=== PATIENT | female | born 2000 | race Caucasian/White ===

== ENCOUNTER → 2020-01-13 16:50 | Outpatient (BNVA) | payer MEDICAID, SELFPAY | PROVIDERS: Family Provider Family Medicine; PCP Nurse Practitioner Family; Visit Provider Obstetrics & Gynecology | DX: Z12.4 Encounter for screening for malignant neoplasm of cervix (principal) | CPT/HCPCS: 88175 ==

== ENCOUNTER → 2020-06-08 10:45 | Outpatient (BNVA) | payer MEDICAID, SELFPAY | PROVIDERS: Family Provider Family Medicine; PCP Nurse Practitioner Family; Visit Provider Obstetrics & Gynecology | DX: Z11.3 Encounter for screening for infections with a predominantly sexual mode of transmission (principal) | CPT/HCPCS: 87491; 87591 ==

== ENCOUNTER 2020-08-09 18:30 | Emergency (ER) | payer MEDICAID, SELFPAY ==
[2020-08-09 19:07] VITALS: BP 123/71; PULSE 86; RESP 17; TEMP 36.7; O2SAT 100; BMI 31.6
[2020-08-09 19:44] VITALS: BP 112/49; PULSE 75; RESP 23; O2SAT 100
--- NOTE | 2020-08-09 19:57 | CTR_ITS ---
PROCEDURE INFORMATION: Exam: CT Abdomen And Pelvis With Contrast Exam date and time: 08/09/2020 9:35 PM Age: 20 years old Clinical indication: Abdominal pain; Localized; Lower; Prior surgery; Surgery type: ; Additional info: Llq abdominal pain TECHNIQUE: Imaging protocol: Computed tomography of the abdomen and pelvis with contrast. Radiation optimization: All CT scans at this facility use at least one of these dose optimization techniques: automated exposure control; mA and/or kV adjustment per patient size (includes targeted exams where dose is matched to clinical indication); or iterative reconstruction. Contrast material: OMNI 300; Contrast volume: 95 ml; Contrast route: INTRAVENOUS (IV); COMPARISON: US transvaginal [id number] 08/09/2020 8:16 PM RADIATION DOSE METRICS: Total DLP (mGy-cm): 1583.99 FINDINGS: The lung bases are clear. There are bilateral pars defects at L5. There is no liver mass. There is no intrahepatic biliary dilatation. The gallbladder is contracted likely due to recent meal. The stomach is filled with food. The pancreas is unremarkable. The spleen is unremarkable. There is no adrenal mass. There is no hydronephrosis. There are no renal calculi. There is no perinephric stranding. There is no renal mass. The aorta is normal in caliber. The IVC is normal in caliber. There is no retroperitoneal adenopathy. There is no mesenteric adenopathy. There is no gastric wall thickening. The small bowel loops in the upper abdomen are nondistended with no bowel wall thickening. Feces is seen throughout the colon. There is no thickening of the wall of the ascending, transverse or descending colons. Within the pelvis: A normal appendix is seen within the right lower quadrant. The bladder is unremarkable. An IUD is seen within the uterus. There is a 4.2 cm right ovarian cyst. There is a 2.1 cm left ovarian cyst. There is no free fluid within the pelvis. There is no inguinal adenopathy. There is no pelvic adenopathy. The rectosigmoid colon is unremarkable. CT/CT abdomen pelvis w con* [id number] IMPRESSION: 1. Small simple ovarian cysts. 2. No evidence for bowel obstruction or bowel wall thickening. 3. No acute inflammatory process is seen within the abdomen or pelvis. Radiation Dose CTDIVOL = (mGy): DLP = 1583.99 (mGy-cm)
--- NOTE | 2020-08-09 19:57 | USR_ITS ---
PROCEDURE INFORMATION: Exam: US Pelvis, Transvaginal Exam date and time: 08/09/2020 8:09 PM Age: 20 years old Clinical indication: Pelvic pain; Prior surgery; Surgery date: 6+ months; Surgery type: 2 c-sec; Additional info: Llq pain TECHNIQUE: Imaging protocol: Real-time transvaginal pelvic ultrasound with image documentation. Transvaginal imaging was used for better evaluation of the endometrium, adnexa, and/or cervix. COMPARISON: US OB Limited [id number] 08/05/2018 8:30 PM FINDINGS: The transvaginal imaging of the pelvis was performed. The the the uterus measured 7.6 x 5.5 x 3.5 cm. There is no uterine mass. There is an IUD within the endometrial canal. The right ovary measured 4.2 x 4.2 x 3.0 cm. The left ovary measured 3.0 x 2.0 x 1.8 cm. There is a 3.6 cm simple appearing right ovarian cyst. No mass is seen within the left ovary. Normal blood flow is seen within the ovaries. No free fluid is identified. US/US transvaginal [id number] IMPRESSION: 3.6 cm simple appearing right ovarian cyst.
[2020-08-09 20:42] LABS: Add Urine Microscopic? NO; Charge for UA Resulting for Rev
[2020-08-09 20:47] LABS: Urine Appearance Clear (CLEAR); Urine Color Yellow (Yellow)
[2020-08-09 20:48] LABS: Bilirubin Urine Neg (Negative); Blood Urine Neg (Negative); Glucose Urine UA Norm (Normal); Ketones Urine Negative (Negative); Leukocyte Esterase Urine Negative (Negative); Nitrate Urine Negative (Negative); Protein Urine Neg (Negative); Specific Gravity, Urine 1.005 (1.005-1.030); Sulfosalicylic Acid Urine Negative (Negative); Urobilinogen Urine Norm (Negative); pH Urine 8 (5-7)
[2020-08-09] MEDS: sodium chloride 0.9% 1,000 ML 999 ML IV (20:52)
[2020-08-09] MEDS: iohexol 300 mg/mL 100 mL Btl IV (21:36)
[2020-08-09 21:57] LABS: Basophils % 0.4 %; Eosinophils # 0.1 10^3/uL (0.0-0.8); Eosinophils % 1.6 %; Hematocrit 36.5 % (37.0-47.0); Hemoglobin 11.8 g/dL (11.5-15.3); Lymphocytes # 2.6 10^3/uL (0.8-4.8); Lymphocytes % 28.7 %; Mean Corpuscular HGB Conc 32.3 g/dL (30.0-36.0); Mean Corpuscular Hemoglobin 30.1 pg (28.0-34.0); Mean Corpuscular Volume 93.1 fL (81-99); Mean Platelet Volume 11.2 fL (7.4-10.4); Monocytes # 0.8 10^3/uL (0.2-0.9); Neutrophils # 5.42 10^3/uL (1.8-7.7); Neutrophils % 60.1 %; Nucleated Red Blood Cells % 0 %; Platelet Count 222 10^3/cmm (130-400); Red Blood Count 3.92 10^6/uL (4.1-5.3); Red Cell Distribution Width 11.8 % (12.1-15.1)
--- NOTE | 2020-08-09 22:05 | W.ED.ABDPA2 ---
HPI - Abdominal Pain General: Chief Complaint: Abdominal Pain Stated Complaint: SEVERE CRAMPING L LOWER SIDE ABDOMEN Time Seen by Provider: 08/09/20 19:44 History of Present Illness: HPI narrative: The patient is a 20-year-old female who comes to the ER complaining of suprapubic pain just to the left of midline. She says it also hurt with sexual intercourse yesterday and the pain did start yesterday. She denies vaginal discharge. She uses an IUD for control. Denies urinary symptoms. She says her family has history of ovarian cysts. MD elicited complaint: abdominal pain Pertinent past history: none Pain Consistency: constant Location: LLQ Severity: mild Quality: sharp Migration to: no migration Exacerbating factors: other (Sexual intercourse) Relieving factors: nothing Associated Symptoms: Reports no associated symptoms; Denies GI cramping and diarrhea Review of Systems General: Reports: 10 or more systems reviewed and unremarkable except in HPI and below Const: Denies: fatigue Eyes: Denies: change in vision, blurry vision or eye redness ENMT: Denies: throat pain, swelling of lips/tongue, ear or mastoid pain or nasal congestion Card: Denies: chest pain, palpitations, irregular heart rhythm, edema, dyspnea on exertion or orthopnea Resp: Denies: dyspnea, productive cough or non-productive cough GI: Denies: abdominal pain, diarrhea or GI cramping : Denies: flank pain, difficulty voiding, urinary frequency or urinary urgency Musc: Denies: neck pain, back pain, extremity pain, joint pain, joint redness, limited range of motion or muscle weakness Skin/Breast: Denies: rash, pruritus, erythema, skin pain or skin tenderness Neuro: Denies: headache(s), numbness in extremities, weakness in extremities, sensory changes, difficulty walking, dizziness, confusion or Slurred speech present Psych: Denies: anxiety or depression Endo: Denies: polyuria All/Imm: Denies: urticaria, throat swelling or tongue swelling PFSH ED PFSH: Medical History No pertinent past medical history Denies diabetes, asthma, hypertension, seizures, DVT/PE PCP: MICHAEL Funez Surgical History S/P section x 2 03/08/2017--- delivery at 29 weeks for active labor at 7 cm. Baby boys brentlee and bently. - Operative reports were obtained and scanned into the chart. Primary delivery with a T-shaped uterine incision. Baby be could not be delivered and extension of the incision to a T-shaped was done. Recommend all future deliveries via . 11/27/2018-----> repeat low transverse delivery via Pfannenstiel incision at 36 weeks after steroids were given. Performed by Dr. Griffin at [facility] [place] because of T-shaped uterine incision S/P tonsillectomy 01/2016--performed in [place], [place] Family History Mother Diabetes Stroke Heart disease Grandmother Diabetes maternal and paternal Denies family history of Colon cancer Ovarian cancer Hyperlipidemia Breast cancer Hypertension Uterine cancer Thyroid condition Physical Exam Const: COMMON NORMALS: no acute distress, average body habitus, patient oriented x3, no limitations, healthy appearing, alert and well nourished GENERAL APPEARANCE: cooperative, comfortable, well kempt and well developed ORIENTATION/CONSCIOUSNESS: Yes awake, Yes oriented to person, Yes oriented to place and Yes oriented to time HENMT: COMMON NORMALS: normocephalic, external ears normal and Normal external nose present HEAD & SCALP: normal to inspection and normocephalic NOSE: Normal external nose present EXTERNAL EAR: Yes external ears normal MOUTH: Normal oral and palatal mucosa present THROAT: posterior oropharynx normal Eye: COMMON NORMALS: Equal, round and reactive pupils present and EOMs intact bilaterally GENERAL EYE: appearance normal, both eyes and all related structures PUPIL: Yes Equal, round and reactive pupils present Neck/C-Spine: COMMON NORMALS: full ROM, no lymphadenopathy, no meningeal signs and no JVD GENERAL: Yes normal visual inspection Lymph: LYMPHATIC: no lymphadenopathy noted Chest: COMMONS NORMALS: normal inspection of the chest and normal palpation of entire chest wall Resp: COMMON NORMALS: normal respiratory effort, No retractions, No use of accessory muscles, clear to auscultation bilaterally and percussion normal EFFORT & INSPECTION: Yes able to speak in complete sentences AUSCULTATION: clear to auscultation bilaterally PERCUSSION: percussion normal Cardio: COMMON NORMALS: no JVD, regular rate, regular rhythm, S1 normal heart sound present, S2 normal heart sound present and Peripheral pulses 2+ throughout RATE: regular rate RHYTHM: regular rhythm HEART SOUNDS: S1 normal heart sound present and S2 normal heart sound present PERIPHERAL PULSES: Peripheral pulses 2+ throughout GI: COMMON NORMALS: Normal to inspection, nondistended, normoactive bowel sounds present, Soft to palpation, non-tender and no masses INSPECTION: Yes normal to inspection PALPATION: Yes Soft to palpation OTHER: Mild tenderness over left lower quadrant area where the ovary is located. Likely ovarian cyst tenderness. : COMMON NORMALS: Yes no CVA tenderness BLADDER/KIDNEY EXAM: Yes no CVA tenderness Back/Pelvis: COMMON NORMALS: no CVA tenderness, thoracic and lumbar spine normal to inspection, no thoracic nor lumbar tenderness and thoraco-lumbar ROM normal Extremity: COMMON NORMALS: normal to inspection, full ROM, capillary refill normal, no joint enlargement and no pedal edema GENERAL: Yes normal exam except as noted Neuro: COMMON NORMALS: patient oriented x3, CN's II-XII intact bilaterally, moves all extremities, no focal motor deficits, no sensory deficits noted and gait normal SENSORIUM/ORIENTATION: Yes alert, Yes oriented to person, Yes oriented to place and Yes oriented to time MENINGEAL SIGNS: Yes no meningeal signs Psych: COMMON NORMALS: mental status grossly normal, Normal thought process present, cooperative, normal affect and speech normal APPEARANCE: Yes well kempt ATTITUDE: Yes calm SPEECH: Yes normal speech THOUGHT PROCESS: Normal thought process present Skin: COMMON NORMALS: no rashes or lesions noted GENERAL SKIN EXAM: no rashes or lesions noted Course Vital Signs: Vital signs: Vital Signs Temperature 98.0 F 08/09/20 19:07 Pulse Rate 88 08/09/20 22:19 Respiratory Rate 20 H 08/09/20 22:19 Blood Pressure 108/53 08/09/20 22:19 Pulse Oximetry 98 08/09/20 22:19 MDM - Abdominal Pain MDM Narrative: Medical decision making narrative: CT and ultrasound both show ovarian cyst. She is stable for discharge. Ibuprofen for pain. Primary care in a couple days. ER with worsening symptoms. Lab Data: Labs: Lab Results 08/09/20 08/09/20 08/09/20 Range/Units 20:37 21:50 21:50 WBC 9.0 (4.0-10.0) 10^3/ uL RBC 3.92 L (4.1-5.3) 10^6/u L Hgb 11.8 (11.5-15.3) g/dL Hct 36.5 L (37.0-47.0) % MCV 93.1 (81-99) fL MCH 30.1 (28.0-34.0) pg MCHC 32.3 (30.0-36.0) g/dL RDW 11.8 L (12.1-15.1) % Plt Count 222 (130-400) 10^3/c mm MPV 11.2 H (7.4-10.4) fL Neut % (Auto) 60.1 % Lymph % (Auto) 28.7 % [place] % (Auto) 9.0 % Eos % (Auto) 1.6 % Baso % (Auto) 0.4 % Neut # (Auto) 5.42 (1.8-7.7) 10^3/u L Lymph # (Auto) 2.6 (0.8-4.8) 10^3/u L [place] # (Auto) 0.8 (0.2-0.9) 10^3/u L Eos # (Auto) 0.1 (0.0-0.8) 10^3/u L Baso # (Auto) 0.0 (0.0-0.1) 10^3/u L Nucleated RBC % (a uto) 0 % Nucleated RBCs # 0.0 /100WBC Sodium 137 (136-145) mmol/L Potassium 3.8 (3.5-5.1) mmol/L Chloride 105 (98-107) mmol/L Carbon Dioxide 26 (22-29) mmol/L Anion Gap 9.8 (5-19) BUN 8 (6-20) mg/dL Creatinine 0.5 (0.5-0.9) mg/dL Glucose 89 (65-115) mg/dL Total Bilirubin 0.2 (0.15-1.2) mg/dL AST 11 (0-32) U/L ALT 8 (0-33) U/L Alkaline Phosphata se 72 (35-105) IU/L Albumin 4.0 (3.5-5.2) g/dL Globulin 2.1 (1.3-4.6) g/dL Lipase 29 (13-60) U/L Urine Color Yellow (Yellow) Urine Appearance Clear (CLEAR) Urine pH 8 H (5-7) Ur Specific Gravit y 1.005 (1.005-1.030) Urine Protein Neg (Negative) Urine Glucose (UA) Norm (Normal) Urine Ketones Negative (Negative) Urine Blood Neg (Negative) Urine Nitrate Negative (Negative) Urine Bilirubin Neg (Negative) Prot Sulfosalicyli c Acd Negative (Negative) Urine Urobilinogen Norm (Negative) mg/dL Ur Leukocyte Daja ase Negative (Negative) Discharge Plan Discharge Patient Disposition: Home Clinical Impression: Ovarian cyst Condition: Stable Prescriptions: No Action Mirena 20 mcg/24 hours (5 yrs) 52 mg intrauterine device See Rx Instructions .ROUTE .COMPLEX RF: 0 ibuprofen 200 mg Tablet 400 - 600 mg PO PRN RF: 0 Discharge Orders: Discharge ED (Routine); Ordered 08/09/20 Ordered By: Aroldo Daniels Referrals: Farhana Simmons MD [Primary Care Provider] - Discharge Diet: Advance as tolerated Discharge Activity: Resume usual activity Patient Instructions: Ovarian Cyst (ED), Opioid Safety Activity Restrictions/Additional Instructions: Your pain is likely from an ovarian cyst. Please take ibuprofen to help with this and return to the ER with worsening pain otherwise follow-up with your primary care physician in a few days to discuss further. Coding Level of Care Code ED Dredge Pipeman for Luciano Fwd Exam Comprehensive
[2020-08-09 22:13] LABS: Alanine Aminotransferase 8 U/L (0-33); Alkaline Phosphatase 72 IU/L (35-105); Anion Gap 9.8 (5-19); Aspartate Amino Transferase 11 U/L (0-32); Blood Urea Nitrogen 8 mg/dL (6-20); Calcium 7.9 mg/dL (8.5-10.5); Carbon Dioxide 26 mmol/L (22-29); Chloride 105 mmol/L (98-107); Globulin 2.1 g/dL (1.3-4.6); Glomerular Filtration Rate 154.3 mL/min (90-130); Glucose 89 mg/dL (65-115); Lipase 29 U/L (13-60); Osmolality Calculated 282 mOsm/kg (285-295); Potassium 3.8 mmol/L (3.5-5.1); Sodium 137 mmol/L (136-145); Total Bilirubin 0.2 mg/dL (0.15-1.2); Total Protein 6.1 g/dL (6.6-8.7)
[2020-08-09] MEDS: ibuprofen 600 mg Tablet PO (22:18)
[2020-08-09 22:19] VITALS: BP 108/53; PULSE 88; RESP 20; O2SAT 98
[2020-08-09 22:42] VITALS: BP 104/52; PULSE 89; RESP 20; O2SAT 20
[2020-08-09 23:27] LABS: HCG Qualitative Urine. Negative (Negative)
== END 2020-08-09 22:43 | disposition home or self-care (01) ==
PROVIDERS: Emergency Medicine; Emergency Provider Family Medicine; PCP Family Medicine
DX: N83.201 Unspecified ovarian cyst, right side (principal)
CPT/HCPCS: 74177; 76830; 80053; 81003; 81025; 83690; 85025; 96360; 99283; J7030; Q9967

== ENCOUNTER → 2020-09-19 08:14 | Outpatient (BNVA) | payer MEDICAID, SELFPAY | PROVIDERS: PCP Family Medicine; Visit Provider Obstetrics & Gynecology | DX: N83.209 Unspecified ovarian cyst, unspecified side (principal) | CPT/HCPCS: 76830 ==

== ENCOUNTER → 2020-11-14 14:22 | Outpatient (BNVA) | payer MEDICAID, SELFPAY | PROVIDERS: PCP Family Medicine; Visit Provider Obstetrics & Gynecology | DX: Z30.9 Encounter for contraceptive management, unspecified (principal) | CPT/HCPCS: 81025 ==

== ENCOUNTER → 2020-12-19 14:01 | Outpatient (BNVA) | payer MEDICAID, SELFPAY | PROVIDERS: PCP Family Medicine; Visit Provider Obstetrics & Gynecology | DX: Z30.431 Encounter for routine checking of intrauterine contraceptive device (principal) | CPT/HCPCS: 76830; 84702 ==

== ENCOUNTER → 2020-12-21 09:25 | Outpatient (BNVA) | payer MEDICAID, SELFPAY | PROVIDERS: PCP Family Medicine; Visit Provider Obstetrics & Gynecology | DX: Z30.9 Encounter for contraceptive management, unspecified (principal) | CPT/HCPCS: 76857; 81025 ==

== ENCOUNTER 2021-01-29 00:31 | Observation (INO) | payer MEDICAID, SELFPAY ==
[2021-01-29] VITALS (22 sets, daily range): BP systolic 96–142; BP diastolic 58–93; PULSE 70–97; RESP 16–22; TEMP 36.4–37; O2SAT 93–100; BMI 30.9
[2021-01-29 01:11] LABS: Add Urine Microscopic? NO; Charge for UA Resulting for Rev
[2021-01-29 01:12] LABS: Basophils # 0.1 10^3/uL (0.0-0.1); Basophils % 0.3 %; Eosinophils # 0.3 10^3/uL (0.0-0.8); Eosinophils % 1.9 %; Hematocrit 40.8 % (37.0-47.0); Hemoglobin 13.1 g/dL (11.5-15.3); Lymphocytes # 2.9 10^3/uL (0.8-4.8); Lymphocytes % 17.5 %; Mean Corpuscular HGB Conc 32.1 g/dL (30.0-36.0); Mean Corpuscular Hemoglobin 30.5 pg (28.0-34.0); Mean Corpuscular Volume 94.9 fl (81-99); Mean Platelet Volume 10.8 fL (7.4-10.4); Monocytes # 1.2 10^3/uL (0.2-0.9); Monocytes % 7.1 %; Neutrophils # 12.16 10^3/uL (1.8-7.7); Neutrophils % 72.8 %; Nucleated Red Blood Cells % 0 %; Platelet Count 292 10^3/cmm (130-400); Red Cell Distribution Width 12.4 % (12.1-15.1); White Blood Count 16.7 10^3/uL (4.0-10.0)
--- NOTE | 2021-01-29 01:16 | CTR_ITS ---
PROCEDURE INFORMATION: Exam: CT Abdomen And Pelvis With Contrast Exam date and time: 01/29/2021 1:16 AM Age: 20 years old Clinical indication: Abdominal pain; Localized; Right lower quadrant (rlq); Additional info: Rlq pain TECHNIQUE: Imaging protocol: Computed tomography of the abdomen and pelvis with contrast. Radiation optimization: All CT scans at this facility use at least one of these dose optimization techniques: automated exposure control; mA and/or kV adjustment per patient size (includes targeted exams where dose is matched to clinical indication); or iterative reconstruction. Contrast material: OMNI 300; Contrast volume: 95 ml; Contrast route: INTRAVENOUS (IV); COMPARISON: CT abdomen pelvis w con* [id number] 08/09/2020 9:34 PM RADIATION DOSE METRICS: Total DLP (mGy-cm): 1618.23 FINDINGS: Liver: Normal. No mass. Gallbladder and bile ducts: The gallbladder appears contracted. Pancreas: Normal. No ductal dilation. Spleen: Normal. No splenomegaly. Adrenal glands: Normal. No mass. Kidneys and ureters: Normal. No hydronephrosis. Stomach and bowel: There is mild thickening of the proximal cecal wall likely representing mild inflammatory changes as well. Appendix: Although the appendix is normal in caliber measuring approximately 6 mm in diameter, there is enhancement of the distal appendiceal wall. Additionally, there are hazy linear opacities present in the adjacent appendiceal mesenteric fat and mild thickening of the adjacent peritoneum compatible with inflammatory changes and mild appendicitis. Intraperitoneal space: There is some haziness seen within the greater omentum anteriorly likely representing edematous or inflammatory changes. Vasculature: Unremarkable. No abdominal aortic aneurysm. Lymph nodes: Unremarkable. No enlarged lymph nodes. Urinary bladder: Unremarkable as visualized. Reproductive: An IUD is present. There is a 3.4 x 3.7 x 2.7 cm hypoattenuation cystic mass seen associated with the right ovary compatible with a benign or functional ovarian cyst. Bones/joints: Unremarkable. No acute fracture. Soft tissues: Unremarkable. CT/CT abdomen pelvis w con* [id number] IMPRESSION: 1. There is mild thickening and enhancement of the distal appendiceal wall and some subtle thickening of the adjacent peritoneum and haziness within the appendiceal mesentery, findings that may represent mild appendicitis despite a normal caliber of the appendix. 2. There is mild thickening of the adjacent cecal wall possibly representing mild reactive inflammatory response. There is mild haziness seen within the adjacent greater omentum possibly representing edematous or inflammatory changes. 3. Probable benign or functional right ovarian cyst measuring up to 3.7 cm. No further workup needed. Radiation Dose CTDIVOL = (mGy): DLP = 1618.23 (mGy-cm)
[2021-01-29 01:17] LABS: Bilirubin Urine Neg (Negative); Blood Urine Neg (Negative); Glucose Urine UA Norm (Normal); Ketones Urine Negative (Negative); Nitrate Urine Negative (Negative); Protein Urine Neg (Negative); Urine Appearance Clear (CLEAR); Urine Color Yellow (Yellow); pH Urine 6 (5-7)
[2021-01-29 01:18] LABS: Leukocyte Esterase Urine Negative (Negative); Urobilinogen Urine 1 mg/dL (Negative)
[2021-01-29 01:20] LABS: HCG, Serum Qual Negative (Negative)
[2021-01-29 01:26] LABS: Alanine Aminotransferase 8 U/L (0-33); Albumin Level 3.9 g/dL (3.5-5.2); Alkaline Phosphatase 84 IU/L (35-105); Anion Gap 12.4 (5-19); Aspartate Amino Transferase 10 U/L (0-32); Blood Urea Nitrogen 11 mg/dL (6-20); C Reactive Protein 9.5 mg/L (0.0-4.9); Calcium 9.2 mg/dL (8.5-10.5); Carbon Dioxide 25 mmol/L (22-29); Chloride 103 mmol/L (98-107); Globulin 3.4 g/dL (1.3-4.6); Glomerular Filtration Rate 154.3 mL/min (90-130); Glucose 78 mg/dL (65-115); Lipase 22 U/L (13-60); Osmolality Calculated 282 mOsm/kg (285-295); Potassium 3.4 mmol/L (3.5-5.1); Sodium 137 mmol/L (136-145); Total Bilirubin 0.2 mg/dL (0.15-1.2); Total Protein 7.3 g/dL (6.6-8.7)
[2021-01-29] MEDS: ondansetron 2 mg/ML SDV 2 mL 4 MG IVP ×2 (01:28→11:29)
[2021-01-29] MEDS: sodium chloride 0.9% 1,000 ML 999 ML IV ×2 (01:28→03:17)
[2021-01-29] MEDS: ketorolac 30 mg/mL INJ 15 MG IVP (01:28)
[2021-01-29] MEDS: iohexol 300 mg/mL 100 mL Btl IV (01:39)
--- NOTE | 2021-01-29 02:08 | W.ED.ABDPA2 ---
HPI - Abdominal Pain General: Chief Complaint: Abdominal Pain Stated Complaint: Rt Side Sharp Pains Time Seen by Provider: 01/29/21 00:42 History of Present Illness: HPI narrative: 20-year-old female with a history of tight abdominal pain for the last 2 days. She has been anorexic today. No vomiting. No fever. She localizes her pain currently to the right lower quadrant, and states that it radiates up to her right flank. History of 2 C-sections, no other belly surgeries. MD elicited complaint: abdominal pain Onset (ago): day(s) (2) Location: RLQ Severity: moderate Quality: stabbing and aching Radiation: R flank Associated Symptoms: Reports anorexia, bloating and nausea; Denies change in stool character, diarrhea, dyspepsia, fever(s), hematemesis and vomiting Review of Systems Const: Denies: fever(s) Card: Denies: chest pain Resp: Denies: dyspnea or productive cough GI: Reports: nausea and bloating; Denies: vomiting, hematemesis, diarrhea or change in stool character PFS ED PFSH: Medical History No pertinent past medical history Denies diabetes, asthma, hypertension, seizures, DVT/PE PCP: MICHAEL Funez Surgical History S/P section x 2 03/08/2017--- delivery at 29 weeks for active labor at 7 cm. Baby boys brentlee and bently. - Operative reports were obtained and scanned into the chart. Primary delivery with a T-shaped uterine incision. Baby be could not be delivered and extension of the incision to a T-shaped was done. Recommend all future deliveries via . 11/27/2018-----> repeat low transverse delivery via Pfannenstiel incision at 36 weeks after steroids were given. Performed by Dr. Griffin at [facility] [place] because of T-shaped uterine incision S/P tonsillectomy 01/2016--performed in [place], [place] Family History Mother Diabetes Stroke Heart disease Grandmother Diabetes maternal and paternal Denies family history of Colon cancer Ovarian cancer Hyperlipidemia Breast cancer Hypertension Uterine cancer Thyroid condition Physical Exam Const: COMMON NORMALS: no acute distress, patient oriented x3 and alert Eye: COMMON NORMALS: EOMs intact bilaterally Chest: COMMONS NORMALS: normal inspection of the chest Resp: COMMON NORMALS: normal respiratory effort, No use of accessory muscles and clear to auscultation bilaterally AUSCULTATION: clear to auscultation bilaterally Cardio: COMMON NORMALS: regular rate and regular rhythm RATE: regular rate RHYTHM: regular rhythm GI: COMMON NORMALS: Normal to inspection, nondistended, normoactive bowel sounds present and Soft to palpation PALPATION: Yes Soft to palpation and Yes Tenderness to palpation present (GI) Details: RLQ Neuro: COMMON NORMALS: patient oriented x3 SENSORIUM/ORIENTATION: Yes alert Course Consultations: Consultation #1: giurgius Time: 03:18 Vital Signs: Vital signs: Vital Signs Temperature 98.1 F 01/29/21 00:39 Pulse Rate 74 01/29/21 02:16 Respiratory Rate 18 01/29/21 03:35 Blood Pressure 112/69 01/29/21 02:16 Pulse Oximetry 100 01/29/21 03:35 MDM - Abdominal Pain MDM Narrative: Medical decision making narrative: White blood cell count 16.7. Other labs are benign essentially. CT shows right lower quadrant inflammatory changes, with inflammation at the tip of the appendix suspicious for early appendicitis. Spoke with surgery. Recommendations are Zosyn, put on the OR schedule for later in the morning, observation admission and pain control. Lab Data: Labs: Lab Results 01/29/21 01/29/21 01/29/21 01:00 01:00 01:00 WBC 16.7 10^3/uL H 10 ^3/uL (4.0-10.0) RBC 4.30 10^6/uL 10^6 /uL (4.1-5.3) Hgb 13.1 g/dL g/dL (11.5-15.3) Hct 40.8 % % (37.0-47.0) MCV 94.9 fl fl (81-99) MCH 30.5 pg pg (28.0-34.0) MCHC 32.1 g/dL g/dL (30.0-36.0) RDW 12.4 % % (12.1-15.1) Plt Count 292 10^3/cmm 10^3 /cmm (130-400) MPV 10.8 fL H fL (7.4-10.4) Neut % (Auto) 72.8 % % Lymph % (Auto) 17.5 % % [place] % (Auto) 7.1 % % Eos % (Auto) 1.9 % % Baso % (Auto) 0.3 % % Neut # (Auto) 12.16 10^3/uL H 1 0^3/uL (1.8-7.7) Lymph # (Auto) 2.9 10^3/uL 10^3/ uL (0.8-4.8) [place] # (Auto) 1.2 10^3/uL H 10^ 3/uL (0.2-0.9) Eos # (Auto) 0.3 10^3/uL 10^3/ uL (0.0-0.8) Baso # (Auto) 0.1 10^3/uL 10^3/ uL (0.0-0.1) Nucleated RBC % (a uto) 0 % % Nucleated RBCs # 0.0 /100WBC /100W BC Sodium 137 mmol/L mmol/L (136-145) Potassium 3.4 mmol/L L mmol /L (3.5-5.1) Chloride 103 mmol/L mmol/L (98-107) Carbon Dioxide 25 mmol/L mmol/L (22-29) Anion Gap 12.4 (5-19) BUN 11 mg/dL mg/dL (6-20) Creatinine 0.5 mg/dL mg/dL (0.5-0.9) GFR Calculation 154.3 mL/min H mL /min (90-130) Glucose 78 mg/dL mg/dL (65-115) Calculated Osmolal ity 282 mOsm/kg L mOs m/kg (285-295) Calcium 9.2 mg/dL mg/dL (8.5-10.5) Total Bilirubin 0.2 mg/dL mg/dL (0.15-1.2) AST 10 U/L U/L (0-32) ALT 8 U/L U/L (0-33) Alkaline Phosphata se 84 IU/L IU/L (35-105) C-Reactive Protein 9.5 mg/L H mg/L (0.0-4.9) Total Protein 7.3 g/dL g/dL (6.6-8.7) Albumin 3.9 g/dL g/dL (3.5-5.2) Globulin 3.4 g/dL g/dL (1.3-4.6) Lipase 22 U/L U/L (13-60) HCG, Qual Negative (Negative) Urine Color Urine Appearance Urine pH Ur Specific Gravit y Urine Protein Urine Glucose (UA) Urine Ketones Urine Blood Urine Nitrate Urine Bilirubin Urine Urobilinogen Ur Leukocyte Daja ase 01/29/21 01:00 WBC RBC Hgb Hct MCV MCH MCHC RDW Plt Count MPV Neut % (Auto) Lymph % (Auto) [place] % (Auto) Eos % (Auto) Baso % (Auto) Neut # (Auto) Lymph # (Auto) [place] # (Auto) Eos # (Auto) Baso # (Auto) Nucleated RBC % (a uto) Nucleated RBCs # Sodium Potassium Chloride Carbon Dioxide Anion Gap BUN Creatinine GFR Calculation Glucose Calculated Osmolal ity Calcium Total Bilirubin AST ALT Alkaline Phosphata se C-Reactive Protein Total Protein Albumin Globulin Lipase HCG, Qual Urine Color Yellow (Yellow) Urine Appearance Clear (CLEAR) Urine pH 6 (5-7) Ur Specific Gravit y 1.020 (1.005-1.030) Urine Protein Neg (Negative) Urine Glucose (UA) Norm (Normal) Urine Ketones Negative (Negative) Urine Blood Neg (Negative) Urine Nitrate Negative (Negative) Urine Bilirubin Neg (Negative) Urine Urobilinogen 1 mg/dL H mg/dL (Negative) Ur Leukocyte Daja ase Negative (Negative) Discharge Plan Discharge Patient Disposition: Placed in Observation Clinical Impression: Acute appendicitis Coding Level of Care Code ED Cushion Mat Maker for Luciano Fwd Exam Detailed
[2021-01-29] MEDS: morphine 4 mg/mL SDV 1 mL IVP ×2 (03:35→17:26)
[2021-01-29] MEDS: piperacillin-tazobactam 3.375 GM in sodium chloride 0.9% (plus) 50 ML IV ×3 (03:42→17:23)
--- NOTE | 2021-01-29 06:37 | PM.HP ---
Providers/Chief Complaint Admitting Physician: Gabriel Natarajan MD Primary Care Provider: Farhana Simmons MD Chief Complaint: Rt Side Sharp Pains History of Present Illness Chief Complaint: Belly pain History of present illness: Ms. Charlie Wang is a pleasant 20 year old female patient presents with history of abdominal pain the past 3 days that started at the right lower quadrant and got worse, patient describes it more as being sharp and stabbing. Is not being referred elsewhere and does not seem to know what makes it worse but certainly morphine IV makes it better. No associated nausea but she does not feel that she is able to eat. No dysuria and she reports that she has a bowel movement every other day. She is otherwise healthy but she does report to me with her tonsillectomy surgery took her longer time to wake in the recovery area. Otherwise no bleeding or anesthesia complications with her C-sections. Patient received a dose of Zosyn around 4 AM. Per ER nursing staff CT SCAN ABDOMEN AND PELVIS: 1. There is mild thickening and enhancement of the distal appendiceal wall and some subtle thickening of the adjacent peritoneum and haziness within the appendiceal mesentery, findings that may represent mild appendicitis despite a normal caliber of the appendix. 2. There is mild thickening of the adjacent cecal wall possibly representing mild reactive inflammatory response. There is mild haziness seen within the adjacent greater omentum possibly representing edematous or inflammatory changes. 3. Probable benign or functional right ovarian cyst measuring up to 3.7 cm. No further workup needed. General surgery was consulted for further evaluation. Patient was seen and examined in the emergency department room #6. Review of Systems General: Reports: 10 or more systems reviewed and unremarkable except in HPI and below Medications/Allergies Home Medications Medication Instructions Recorded Confirmed Last Taken Type levonorgestrel 20 mcg/24 hours (6 1 insert INTRAUTERINE .every 6 12/21/20 01/17/21 Unknown Rx yrs) 52 mg intrauterine device years #1 ea Allergies Allergy/AdvReac Type Severity Reaction Status Date / Time No Known Allergies Allergy Verified 01/29/21 07:26 PFSH Acute PFSH: Medical History No pertinent past medical history Denies diabetes, asthma, hypertension, seizures, DVT/PE PCP: MICHAEL Funez Surgical History S/P section x 2 03/08/2017--- delivery at 29 weeks for active labor at 7 cm. Baby boys brentlee and bently. - Operative reports were obtained and scanned into the chart. Primary delivery with a T-shaped uterine incision. Baby be could not be delivered and extension of the incision to a T-shaped was done. Recommend all future deliveries via . 11/27/2018-----> repeat low transverse delivery via Pfannenstiel incision at 36 weeks after steroids were given. Performed by Dr. Griffin at [facility] [place] because of T-shaped uterine incision S/P tonsillectomy 01/2016--performed in [place], [place] Family History Mother Diabetes Stroke Heart disease Grandmother Diabetes maternal and paternal Denies family history of Colon cancer Ovarian cancer Hyperlipidemia Breast cancer Hypertension Uterine cancer Thyroid condition Vitals/I&O/Wt Last Vital Signs Temp 98.1 F 01/29/21 00:39 Pulse 70 01/29/21 06:09 Resp 16 01/29/21 06:09 BP 96/63 01/29/21 06:09 Pulse Ox 95 01/29/21 06:09 01/28/21 01/28/21 01/29/21 14:59 22:59 06:59 Intake Total 2049 Balance 2049 Weight last 48 hrs Weight 180 lb Physical Exam Const: COMMON NORMALS: no acute distress and patient oriented x3 GENERAL APPEARANCE: cooperative ORIENTATION/CONSCIOUSNESS: Yes awake, Yes oriented to person, Yes oriented to place and Yes oriented to time HENMT: COMMON NORMALS: normocephalic HEAD & SCALP: normocephalic Eye: COMMON NORMALS: Equal, round and reactive pupils present and no scleral icterus PUPIL: Yes Equal, round and reactive pupils present Lymph: LYMPHATIC: no lymphadenopathy noted Chest: COMMONS NORMALS: normal inspection of the chest Resp: COMMON NORMALS: normal respiratory effort and clear to auscultation bilaterally AUSCULTATION: clear to auscultation bilaterally Cardio: COMMON NORMALS: S1 normal heart sound present and S2 normal heart sound present; negative for No murmurs present (Cardio) HEART SOUNDS: S1 normal heart sound present and S2 normal heart sound present GI: COMMON NORMALS: Soft to palpation; negative for No hepatosplenomegaly present INSPECTION: Yes normal to inspection PALPATION: Yes Soft to palpation, No Firmness to palpation present (GI), Yes Tenderness to palpation present (GI) Details: RLQ (Localized guarding and rigidity consistent with acute appendicitis), No Guarding due to palpation present (GI), No Rigid due to palpation and No No hepatosplenomegaly present Neuro: COMMON NORMALS: patient oriented x3 SENSORIUM/ORIENTATION: Yes oriented to person, Yes oriented to place and Yes oriented to time Psych: COMMON NORMALS: mental status grossly normal Skin: COMMON NORMALS: no rashes or lesions noted GENERAL SKIN EXAM: no rashes or lesions noted Data : 01/29/21 01:00 01/29/21 01:00 A&P Assessment and plan (1) Acute appendicitis: After thorough history physical examination and reviewing the chart and images with my personal interpretion, I counseled the patient for laparoscopic appendectomy possible open. Indications, risks, benefits and alternatives were all discussed with the patient and did agree to proceed. Rationale was carefully and clearly discussed with the patient.Appropriate informed consent have been reviewed and signed Based on my personal interpretation of the CT scan of the abdomen pelvis I do appreciate haziness around the appendix and the actual appendiceal wall yet there is gas appreciated through the lumen but I would agree that there is a concern for early appendicitis also I do appreciate higher load of stools in the colon indicating underlying constipation. IUD is well seen within the uterine cavity. Status: Acute Attestations Medical Necessity Statement*: Observation for perioperative care Time Spent in Patient Care: (>than 50% of time spent in counselling and/or direct pt care on unit). Coding Level of Care Code Acute Supervisor Asbestos Removal for [facility] Fwd Diagnoses Acute appendicitis K35.80
[2021-01-29] MEDS: lactated ringers 1,000 ML 125 ML IV ×2 (07:19→17:23)
--- NOTE | 2021-01-29 08:55 | P.ANESASSM_ITS ---
Pre-Anesthetic Assessment Pre-Anesthetic Assessment: Height/Weight: Height 1.63 m Weight 81.647 kg Temp Pulse Resp BP Pulse Ox 98.1 F 96 22 H 136/63 100 01/29/21 00:39 01/29/21 06:44 01/29/21 06:44 01/29/21 06:44 01/29/21 06:44 Preop Diagnosis: Acute appendicitis Proposed Procedure: Operation Date: 01/29/21 11:20 Proposed Procedures p Laparoscopic Appendectomy(Not Applicable) - Gabriel Natarajan MD Was Beta Antelmo taken within 24 hours: N/A Was Clonidine taken within 24 hours: N/A Social: Social History: Tobacco and No alcohol Exam: Pre-Anes Outpt Exam: alert, oriented x 3, clear to auscultation bilaterally and regular rate & rhythm Airway: Submandibular: WNL Cervical ROM: WNL MP: 2 Dentition: Full History/ROS: No significant history except as noted Metabolic: Metabolic: Morbid obesity Anesthetic Plan: ASA status: 2 Anesthesia: General (Mod RSI) Risk of > 500 ml blood loss (7ml/kg in children): No Meds/Allergies Current Medications: Current Medications Generic Name Dose Route Start Last Admin Trade Name Freq PRN Reason Stop Dose Admin Lactated Ringer's 1,000 mls @ 125 m ls/hr 01/29/21 07:13 01/29/21 07:19 Lactated Ringers IV 01/29/21 15:12 125 mls/hr .Q8H ONE Administration PFSH Anesthesia PFSH: Medical History No pertinent past medical history Denies diabetes, asthma, hypertension, seizures, DVT/PE PCP: MICHAEL Funez Surgical History S/P section x 2 03/08/2017--- delivery at 29 weeks for active labor at 7 cm. Baby boys brentlee and bently. - Operative reports were obtained and scanned into the chart. Primary delivery with a T-shaped uterine incision. Baby be could not be delivered and extension of the incision to a T-shaped was done. Recommend all future deliveries via . 11/27/2018-----> repeat low transverse delivery via Pfannenstiel incision at 36 weeks after steroids were given. Performed by Dr. Griffin at [facility] [place] [place] because of T-shaped uterine incision S/P tonsillectomy 01/2016--performed in [place], [place] Family History Mother Diabetes Stroke Heart disease Grandmother Diabetes maternal and paternal Denies family history of Colon cancer Ovarian cancer Hyperlipidemia Breast cancer Hypertension Uterine cancer Thyroid condition Data Anesthesia CBC & Chem 7: 01/29/21 01:00 01/29/21 01:00 Other Labs: Laboratory Results - last 48 hr 01/29/21 01/29/21 01/29/21 01:00 01:00 01:00 WBC 16.7 H RBC 4.30 Hgb 13.1 Hct 40.8 MCV 94.9 MCH 30.5 MCHC 32.1 RDW 12.4 Plt Count 292 MPV 10.8 H Neut % (Auto) 72.8 Lymph % (Auto) 17.5 [place] % (Auto) 7.1 Eos % (Auto) 1.9 Baso % (Auto) 0.3 Neut # (Auto) 12.16 H Lymph # (Auto) 2.9 [place] # (Auto) 1.2 H Eos # (Auto) 0.3 Baso # (Auto) 0.1 Nucleated RBC % (auto) 0 Nucleated RBCs # 0.0 Sodium 137 Potassium 3.4 L Chloride 103 Carbon Dioxide 25 Anion Gap 12.4 BUN 11 Creatinine 0.5 GFR Calculation 154.3 H Glucose 78 Calculated Osmolality 282 L Calcium 9.2 Total Bilirubin 0.2 AST 10 ALT 8 Alkaline Phosphatase 84 C-Reactive Protein 9.5 H Total Protein 7.3 Albumin 3.9 Globulin 3.4 Lipase 22 HCG, Qual Negative Urine Color Urine Appearance Urine pH Ur Specific [place] Urine Protein Urine Glucose (UA) Urine Ketones Urine Blood Urine Nitrate Urine Bilirubin Urine Urobilinogen Ur Leukocyte Esterase 01/29/21 01:00 WBC RBC Hgb Hct MCV MCH MCHC RDW Plt Count MPV Neut % (Auto) Lymph % (Auto) [place] % (Auto) Eos % (Auto) Baso % (Auto) Neut # (Auto) Lymph # (Auto) [place] # (Auto) Eos # (Auto) Baso # (Auto) Nucleated RBC % (auto) Nucleated RBCs # Sodium Potassium Chloride Carbon Dioxide Anion Gap BUN Creatinine GFR Calculation Glucose Calculated Osmolality Calcium Total Bilirubin AST ALT Alkaline Phosphatase C-Reactive Protein Total Protein Albumin Globulin Lipase HCG, Qual Urine Color Yellow Urine Appearance Clear Urine pH 6 Ur Specific [place] 1.020 Urine Protein Neg Urine Glucose (UA) Norm Urine Ketones Negative Urine Blood Neg Urine Nitrate Negative Urine Bilirubin Neg Urine Urobilinogen 1 H Ur Leukocyte Esterase Negative Cardiac Studies: No Data to Display
[2021-01-29] MEDS: acetaminophen 1,000 MG/100 ML PIGGYBACK 400 MG IV (08:56)
[2021-01-29] MEDS: lidocaine 2% INJ 20 mL INJECTION (10:11)
--- NOTE | 2021-01-29 10:44 | P.OP_ITS ---
Operative Report Date of procedure: January 29, 2021 Pre-op Diagnosis: Acute appendicitis Post-op diagnosis: same Post-op Findings: Acute prececal appendicitis without perforation Procedure Done: Laparoscopic appendectomy Surgeon: Gabriel Natarajan Spreading Machine Operator: Surgical techbrissa Sy LG and Isabel Circulating nurse Roxi Fall Anesthesia: General (GETA CLAY MINER Will Smart) Estimated blood loss (mL): 10 IV fluids (mL): 800 Complications: No immediate complications Condition: stable Disposition: observation Brief History: Acute appendicitis Procedure: Patient after being identified in the holding area and asked to void urine, and informed consent per chart ,patient was then taken back to the OR placed in supine position got intubated by anesthesia left arm was tucked tucked ,Timeout was done verifying the patient's name/date of /planned procedure and destination after the procedure, all were in agreement., preoperative antibiotics administered per protocol. prep and drape of the abdomen was done under the usual sterile technique. Started by longitudinal skin incision supraumbilical using a Cook trocar technique safe entry to the abdominal cavity was achieved verified by using 10 mm zero degree laparoscopy, switched to a 30? scope under direct visualization a suprapubic 5 mm trocar was inserted followed by another 5 mm trocar inserted in the left lower quadrant, I was able to position the patient in an T Estrada and left side down, dissection of the prececal acutely inflamed appendix there was some adhesions towards the lateral pelvic wall that was taken down by sharp and blunt dissection,attention was deviated to the healthy base of the appendix where I had to switch the camera to 5 mm 30? scope got introduced through the left lower quadrant and through the Cook trocar under direct visualization a GI stapler 45 mm blue load was applied at the healthy part of the base of the appendix, and an Endoloop PDS was applied onto the mesoappendix for control,the appendix was then retrieved in an EndoCatch bag and passed to the circulating nurse for pathology, final survey was done of the abdomen and pelvis , irrigation with warm saline, and suction was obtained,were mercury fluid like in the pelvis due to reaction from the inflamed appendix. Multiple 5 mm clips were applied onto the mesoappendix as well as the appendectomy staple line and a right lateral pelvic wall for minimal oozing.There was some adhesions of the omentum towards the site of Cook trocar entrance that was taken down under direct visualization using [place] forceps and monopolar heat. Final look laparoscopy was done showing no other abnormalities or injuries or bleeding, all trocars were taken out under direct visualization after the supraumblical trocar site was closed by #1 PDS sutures under direct vision using fascial closure device ,followed by skin closure using 3/0 Vicryl then 4-0 Monocryl. infiltration of local lidocaine 2% was done to all incision sites.Dry dressing was applied. Count was completed at the end of the procedure for [place],sponges and instruments. Patient tolerated the procedure well and was transferred to the recovery area after extubation. I was present for the whole entire procedure
--- NOTE | 2021-01-29 10:48 | ANE.PACU2 ---
Inpatient post-anesthesia follow up: Airway intact: Yes Vital signs: Temperature 98.2 F Pulse Rate [Monito r] 70 Pulse Rate 72 Respiratory Rate 18 Blood Pressure [Ri ght Arm] 96/63 Blood Pressure 112/72 Pulse Oximetry 99 Oxygen Delivery Me thod Room Air Oxygen Flow Rate 0 Fraction of Inspir ed Oxygen Hydration adequate: Yes Nausea and vomiting: No Pain level: 2 Mental status: Baseline
[2021-01-29] MEDS: fentaNYL 50 mcg/mL INJ 2mL IVP (11:08)
[2021-01-29] MEDS: HYDROcodone-acetaminophen 5-325 mg Tablet 1 TAB PO ×2 (15:20→21:12)
[2021-01-30] VITALS: BP 113/72; PULSE 79; RESP 17; TEMP 37.1; O2SAT 96
[2021-01-30] MEDS: lactated ringers 1,000 ML 125 ML IV ×2 (00:29→08:02)
[2021-01-30] MEDS: piperacillin-tazobactam 3.375 GM in sodium chloride 0.9% (plus) 50 ML IV ×2 (00:29→08:01)
[2021-01-30 03:59] VITALS: BP 110/68; PULSE 87; RESP 17; TEMP 37; O2SAT 97
[2021-01-30] MEDS: HYDROcodone-acetaminophen 5-325 mg Tablet 1 TAB PO ×2 (05:18→11:12)
--- NOTE | 2021-01-30 05:21 | PC.NURSE ---
SHIFT SUMMARY Has rested well. Ambulated in garcia to [place]ixie. Medicated X2 with po Hydrocodone for incisional pain. X3 abd incisional stabs C&D with dermabond closure and MASTER BREWER. Says still not passing gas this am but my stomach is rumbling . Taking clear liquid diet without c/o nausea. IV infusing at 125ml/hr rate and receiving IV antibiotics. Voiding well with 1500ml urine output this shift
[2021-01-30 05:29] LABS: Basophils % 0.3 %; Eosinophils % 0.1 %; Hematocrit 34.8 % (37.0-47.0); Hemoglobin 11.2 g/dL (11.5-15.3); Lymphocytes # 1.8 10^3/uL (0.8-4.8); Lymphocytes % 13.1 %; Mean Corpuscular HGB Conc 32.2 g/dL (30.0-36.0); Mean Corpuscular Volume 96.4 fl (81-99); Mean Platelet Volume 10.8 fL (7.4-10.4); Monocytes # 0.8 10^3/uL (0.2-0.9); Monocytes % 5.5 %; Neutrophils # 11.05 10^3/uL (1.8-7.7); Neutrophils % 80.5 %; Nucleated Red Blood Cells % 0 %; Platelet Count 239 10^3/cmm (130-400); Red Blood Count 3.61 10^6/uL (4.1-5.3); Red Cell Distribution Width 12.2 % (12.1-15.1); White Blood Count 13.7 10^3/uL (4.0-10.0)
[2021-01-30 05:52] VITALS: RESP 20
[2021-01-30] MEDS: morphine 4 mg/mL SDV 1 mL IVP (05:52)
[2021-01-30 07:37] VITALS: BP 99/57; PULSE 97; RESP 17; TEMP 36.7; O2SAT 97
--- NOTE | 2021-01-30 09:33 | PC.CHAP ---
Pastoral Care Encounter/Spiritual Assessment Type of Contact [] Declined braiding machine tender visit [] Patient/Family/Request visit [] Outpatient visit [] Follow-up visit [] Physician referral [] Code/Alert x[x] Routine visit [] Staff referral [] Actively dying [] Patient sleeping [] Family support [] [x] Out of room [] Palliative care [] [] Receiving care in room [] Pre-surgical visit [] Trauma [] Long length of stay [] ICU visit [] Other: Relational/Emotional Strength [] Patient feels connected with others/family/visitors/staff [] Distress [] Loneliness/isolation [] Abandonment Spirituality of Patient [] Person of Annie [] Attends Denominational of their Annie [] Believes in Prayer [] Reads Bible or Roman Catholic materials [] There are Spiritual issues to be addressed Cnc Machine Operator Interventions [] Prayer [] Active listening [] Non-anxious presence [] Spiritual/emotional support [] Crisis/trauma care [] Spiritual counseling [] Bereavement support [] Provided bereavement packet [] Provided Bible/devotional materials [] Provided toy/stuffed animal, coloring book to patient or family member [] Provided Communion [] Anointing/[place] [] Salvation [] Completed spiritual assessment [] Other: Impact on Illness or Injury [] Angry [] Fearful [] Anxious [] Often cries [] Exhaustion [] Unable to work [] Unable to attend voodoo [] Unable to walk/stand [] Unable to read [] Unable to drive [] Unable to eat/drink [] Unable to sleep [] Unable to be with family [] Patient intubated [] Other: Summary Time spent with patient
--- NOTE | 2021-01-30 09:47 | P.SS_ITS ---
Short Stay Summary Providers Date of Admit/Discharge: 01/31/21 Attending Provider: Gabriel Natarajan MD Primary Care Provider: Farhana Simmons MD Chief Complaint: Rt Side Sharp Pains HPI History of Present Illness Ms. Charlie Wang is a pleasant 20 year old female patient presents with history of abdominal pain the past 3 days that started at the right lower quadrant and got worse, patient describes it more as being sharp and stabbing. Is not being referred elsewhere and does not seem to know what makes it worse but certainly morphine IV makes it better. No associated nausea but she does not feel that she is able to eat. No dysuria and she reports that she has a bowel movement every other day. She is otherwise healthy but she does report to me with her tonsillectomy surgery took her longer time to wake in the recovery area. Otherwise no bleeding or anesthesia complications with her C-sections. Patient received a dose of Zosyn around 4 AM. Per ER nursing staff CT SCAN ABDOMEN AND PELVIS: 1. There is mild thickening and enhancement of the distal appendiceal wall and some subtle thickening of the adjacent peritoneum and haziness within the appendiceal mesentery, findings that may represent mild appendicitis despite a normal caliber of the appendix. 2. There is mild thickening of the adjacent cecal wall possibly representing mild reactive inflammatory response. There is mild haziness seen within the adjacent greater omentum possibly representing edematous or inflammatory changes. 3. Probable benign or functional right ovarian cyst measuring up to 3.7 cm. No further workup needed. General surgery was consulted for further evaluation. Patient was seen and examined in the emergency department room #6. Interim history 01/30/2021 Patient undergone uneventful laparoscopic appendectomy and was found to have acute appendicitis without perforation. Review of Systems General: Reports: 10 or more systems reviewed and unremarkable except in HPI and below Home Meds/Allergies Home Medications and Allergies Allergies Allergy/AdvReac Type Severity Reaction Status Date / Time No Known Allergies Allergy Verified 01/30/21 09:48 PFSH Acute PFSH: Medical History No pertinent past medical history Denies diabetes, asthma, hypertension, seizures, DVT/PE PCP: MICHAEL Funez Surgical History S/P section x 2 03/08/2017--- delivery at 29 weeks for active labor at 7 cm. Baby boys brentlee and bently. - Operative reports were obtained and scanned into the chart. Primary delivery with a T-shaped uterine incision. Baby be could not be delivered and extension of the incision to a T-shaped was done. Recommend all future deliveries via . 11/27/2018-----> repeat low transverse delivery via Pfannenstiel incision at 36 weeks after steroids were given. Performed by Dr. Griffin at [facility] [place] because of T-shaped uterine incision S/P tonsillectomy 01/2016--performed in [place], [place] Family History Mother Diabetes Stroke Heart disease Grandmother Diabetes maternal and paternal Denies family history of Colon cancer Ovarian cancer Hyperlipidemia Breast cancer Hypertension Uterine cancer Thyroid condition Vitals/I&O/Wt Last Vital Signs Temp 98.1 F 01/30/21 07:37 Pulse 97 01/30/21 07:37 Resp 17 01/30/21 07:37 BP 99/57 01/30/21 07:37 Pulse Ox 97 01/30/21 07:37 01/29/21 01/30/21 01/30/21 22:59 06:59 14:59 Intake Total 1350 / 2300 1177.5 / 3477.5 925 / 925 Output Total 1500 / 1525 Balance 1350 / 2275 -322.5 / 1952.5 925 / 925 Weight last 48 hrs Weight 180 lb Weight 180 lb Physical Exam Narrative: EXAM NARRATIVE: Patient is conscious alert oriented X3 BMI 31 Head and neck examination PERRLA no masses no cervical lymphadenopathy no jaundice Cardiac examination audible S1-S2 no murmurs no gallops no arrhythmias Chest is clear bilateral,abscence of Rhonchi or wheezes,no surgical emphysema Abdomen nontender except slightly at the incision site nondistended soft no organomegaly guarding or rigidity/no signs of peritonitis, bowel sounds are positive Extremities no cyanosis no clubbing no edema Clinical examination was done in the presence of [facility] nursing staff Hospital Course Hospital Course Patient undergone laparoscopic appendectomy and postoperatively her pain was under control. Continue to have stable vital signs and adequate urine output. Trending down of leukocytosis. No evidence of chills fevers nausea or vomiting. Glycerin suppository was given to the patient and was placed on stool softeners. Discharge Summary This is a pleasant 21 years old female patient presented with worsening right lower sided abdominal pain. And was found to have acute appendicitis. Patient undergone laparoscopic appendectomy and did well with regard to her postoperative course. Trending down leukocytosis. Patient meets the appropriate criteria for discharge home. Patient will be discharged on oral antibiotics and pain medications with the plan to follow-up at surgery office in 10 days. Appropriate education was given to the patient with regard to stool softeners as she has a baseline constipation. Patient was also educated to contact my office if she has any concerns or questions. SSS Data Data Completed and Pending: Completed Studies During Hospitalization Category Date Time Status CT abdomen pelvis w con* [id number] Urge nt Cat Scan 01/29/21 01:16 Completed Pending at discharge Category Date Time Status ES surgery / GI i mages Routine Exams 01/29/21 09:23 Taken Pathology: Surgic al [PTH] Routine Pth 01/29/21 10:49 Received Diagnoses at Discharge Discharge Diagnosis (1) Acute appendicitis: Status: Resolved Discharge Plan Discharge Patient Disposition: Home Condition: Stable Prescriptions: New Augmentin 875-125 mg tablet 1 tab PO Q12H 5 Days Qty: 10 RF: 0 hydrocodone-acetaminophen 5-325 mg tablet 1 tab PO Q6H PRN (Reason: pain) Qty: 28 RF: 0 Continued Mirena 20 mcg/24 hours (6 yrs) 52 mg intrauterine device 1 insert intrauterine .every 6 years Qty: 1 RF: 0 Discharge Orders: Discharge Order (Routine); Ordered 01/30/21 Ordered By: Gabriel Natarajan Referrals: Gabriel Natarajan MD [Physician] - ([facility] will call you with an appointment.) Discharge Diet: Advance as tolerated Discharge Activity: Limit activity as instructed Patient Instructions: Hydrocodone/Acetaminophen (By mouth), Am oxicillin/Clavulanate Potassium (By mouth), Laparoscopic Appendectomy (DC), Opioid Safety Activity Restrictions/Additional Instructions: 1. Patient can shower after 48 hours from surgery 2. Remove Dermabond 7 to 10 days after surgery, if there is a secondary dressing can take down after 48 hours. 3. Up and walking as tolerated 4. Do not lift more than 5 pounds first 2 weeks after surgery and not more than 25 pounds 6 to 8 weeks after surgery. 5. Do not operate heavy machinery or drive while using pain medications. 6.Contact the office or return to the ER for worsening nausea vomiting fevers or chills, or noticing any redness around incision sites or discharge. 7. Avoid constipation Attestations Medical Necessity Statement*: Observation for perioperative care and pain control Time Spent in Patient Care*: less than 30 min Quality Metrics Clinical Quality Measures: During this hospital stay, did patient experience: None Coding Level of Care Code Acute Engineering Technical Specialist for [facility] Diagnoses Acute appendicitis K35.80
[2021-01-30] MEDS: glycerin adult supp 1 EACH PR (09:57)
[2021-01-30] MEDS: docusate sodium 100 mg Capsule 200 MG PO (09:57)
[2021-01-30 11:51] VITALS: BP 99/62; PULSE 82; RESP 17; TEMP 36.7; O2SAT 96
[2021-01-30 17:19] VITALS: BP 99/62; PULSE 82; RESP 17; TEMP 36.7; O2SAT 96
== END 2021-01-30 17:20 | disposition home or self-care (01) ==
LOC: ER 03:52 → OR 07:21 → MEDSURG 21:13
PROVIDERS: Nurse Practitioner Family; Admitting Provider Surgery; Emergency Provider Emergency Medicine; PCP Family Medicine; Visit Provider Surgery
PROC: 0DTJ4ZZ Resection of Appendix, Percutaneous Endoscopic Approach (ICD-10-PCS; CPT 44970; principal; 2021-01-29 11:00)
DX: K35.80 Unspecified acute appendicitis (principal)
CPT/HCPCS: 44970; 36415; 74177; 80053; 81003; 83690; 84703; 85025; 86140; 88304; 96361; 96365; 96375; 99285; G0378; J1100; J1200; J1885; J2250; J2270; J2405; J2543; J2704; J2710; J3010; J3490; J7030; Q9967